=== PATIENT | female | born 1930 | race Caucasian/White ===

== ENCOUNTER → 2016-10-15 | Outpatient (CLI) | payer MEDICARE ==
--- NOTE | 2016-12-19 14:04 | RSPPFT ---
DATE OF PROCEDURE: 10/15/16 COMMENTS: VOLUMES DYNAMIC: FVC and FEV1 normal. STATIC: TLC, RV and VTG normal. FLOWS: FEV1% and FEF 25-75 normal. DIFFUSION: Normal. FLOW VOLUME LOOP: Normal configuration. IMPRESSION: Normal pulmonary functions with no significant obstruction or restriction and no reduction in diffusion. There is no significant improvement post-bronchodilator.
== END ==
LOC: HRSP 10:31
PROVIDERS: ATTEND Internal Medicine Cardiovascular Disease
DX: R06.02 Shortness of breath (principal)
CPT/HCPCS: 94060; 94726; 94729